=== PATIENT | female | born 1940 | race Caucasian/White ===

== ENCOUNTER → 2018-12-08 | Day surgery (SDC) | payer MEDICARE, OTHER ==
[2018-12-01 11:40] LABS: BASOPHILS # (AUTO) 0.1 (0.0-0.1); BASOPHILS % 0.7 % (0.0-1.0); EOSINOPHILS # (AUTO) 0.4 (0.0-0.4); EOSINOPHILS % 5.9 % (0.0-6.0); HEMATOCRIT 40.1 % (34.2-44.1); HEMOGLOBIN 12.9 g/dL (12.0-16.0); LYMPHOCYTES # (AUTO) 3.1 (1.0-3.2); LYMPHOCYTES % 42.9 % (18.0-39.1); MEAN CORPUSCULAR HEMOGLOBIN 29.3 pg (28-32); MEAN CORPUSCULAR HGB CONC 32.2 g/dL (31-35); MEAN CORPUSCULAR VOLUME 91.1 fL (81-99); MONOCYTES # (AUTO) 0.7 (0.2-0.8); MONOCYTES % 9.1 % (4.4-11.3); NEUTROPHILS % 41.1 % (38.7-80.0); PLATELET COUNT 193 x10e3/uL (140-360); RED CELL DISTRIBUTION WIDTH 13.1 % (11.7-14.4)
[~2018-12-08] MED LIST: FENTANYL CITRATE/PF 100MCG/2 ML INJ ONE; GLUCAGON FOR INJ 1 MG VIAL ONE; HYOSCYAMINE 0.125 MG TAB ONE; MIDAZOLAM HCL 2 MG/2 ML VIAL ONE; MULTIVITAMIN PO; PREMARIN0.625 MG PO; PROPOFOL IV EMULSION 10 MG/ML 50 ML VIAL ONE; VITAMIN C PO
--- OUTSIDE RECORDS SUMMARY | 2018-12-08 10:01 | XMS REPORT | Clinical Summary ---
Author Author [facility] Address Unknown Phone Unavailable Care Team Providers Care Full Roll Inspector Name Role Phone PCP Unavailable Allergies Not on File Medications Not on file Active Problems Not on file Encounters Care Team Description Date Type Specialty Chucho Limon MD 01/23/2018 Lab Lab after 12/07/2017 Social History Date Tobacco Use Types Packs/Day Years Used Never Assessed Sex Assigned at Date Recorded Not on file Industry Job Start Date Occupation Not on file Not on file Not on file Travel End Travel History Travel Start No recent travel history available. Last Filed Vital Signs Not on file Plan of Treatment Health Maintenance Due Date Last Done Comments SHINGLES VACCINES (#1) 1990 65+ PNEUMOCOCCAL VACCINE 2005 (1 of 2 - PCV13) INFLUENZA VACCINE 10/15/2018 Procedures Comments Procedure Name Priority Date/Time Associated Diagnosis SURGICAL PATHOLOGY Routine 01/26/2018 REQUEST 1:21 PM EXTENDED INSURANCE CLERK SURGICAL PATHOLOGY Routine 01/26/2018 REQUEST 1:21 PM EXTENDED INSURANCE CLERK after 12/07/2017 Results * Surgical pathology request (01/26/2018 1:21 PM EXTENDED INSURANCE CLERK) Only the most recent of 2 results within the time period is included. [facility] DEPARTMENT OF PATHOLOGY AND GENOMIC MEDICINE Surgical See link below for PDF Lab [facility] DEPARTMENT pathology Report OF PATHOLOGY report AND GENOMIC MEDICINE Result status This is Supplemental Report [facility] DEPARTMENT for [id number] OF PATHOLOGY AND GENOMIC MEDICINE Specimen Performing Organization Address City/State/Zipcode Phone Number [facility] DEPARTMENT OF [address] [place] [address] PATHOLOGY AND GENOMIC MEDICINE after 12/07/2017 Insurance Type Payer Benefit Subscriber ID Effective Phone Address Plan / Dates Group Medicare MEDICARE MEDICARE xxxxxxxxxxx 2005- GUY, PART A AND Present [place] Commercial COMMERCIAL MISC MISC xxxxxxxxxx 2012-P COMMERCIAL resent Advance Directives For more information, please contact: [phone] Patient Certified Pathology Assistant Explanation Type Date Recorded Advance Directives, Living Will and Medical Power of Corporate Fitness Program Coordinator
--- OUTSIDE RECORDS SUMMARY | 2018-12-08 10:01 | XMS REPORT | Continuity of Care Document ---
Author Author [facility] [employer] Organization [facility] [employer] Address Unknown Phone Unavailable Care Team Providers Care Concrete Finishing Machine Operator Name Role Phone [facility] Information [employer] Unavailable Unavailable Problems Problem Status Onset Date Classification Date Reported Comments Source Other specified disorders of muscle 07/02/2017 09/30/2017 [facility] PELVIC FLOOR WEAKNESS Active 07/01/2017 [facility] PHYSICAL THERAPY [id number] Active 05/19/2017 [facility] URINARY ISSUES Active 03/17/2017 [facility] Overactive bladder 09/30/2017 [facility] Mixed incontinence 09/30/2017 [facility] Frequency of micturition 09/30/2017 [facility] Post-void dribbling 09/30/2017 [facility] Other lack of coordination 09/30/2017 [facility] Muscle weakness (generalized) 09/30/2017 [facility] Medications No Data Provided for This Section Allergies, Adverse Reactions, Alerts No Known Medication Allergies Immunizations No Data Provided for This Section Results No Data Provided for This Section Pathology Reports No Data Provided for This Section Diagnostic Reports No Data Provided for This Section Consultation Notes No Data Provided for This Section Discharge Summaries No Data Provided for This Section History and Physicals No Data Provided for This Section Vital Signs No Data Provided for This Section Encounters Location Location Details Encounter Type Encounter Number Reason For Visit Attending Provider ADM Date DC Date Status Source [facility] Recurring [id number] Gazala Prabhakar 05/26/2017 06/25/[address] [facility] [place] [facility] [id number] Gazala Prabhakar 05/29/2017 06/28/[address] [facility] [place] [facility] [place] [facility] [id number] [place] Prabhakar 07/01/2017 07/31/[address] [facility] [place] [facility] [place] [facility] [id number] [place] Prabhakar 07/31/2017 08/30/[address] [facility] [place] Procedures No Data Provided for This Section Assessment and Plan No Data Provided for This Section Plan of Care No Data Provided for This Section Social History Social History Date Source No data available for this section 08/30/[address] [facility] [place] No data available for this section 06/25/2017 [facility] Family History No Data Provided for This Section Advance Directives No Data Provided for This Section Functional Status No Data Provided for This Section
--- OUTSIDE RECORDS SUMMARY | 2018-12-08 10:02 | XMS REPORT | Summary of Care ---
Author Author [facility] [employer] [facility] Address Unknown Phone Unavailable Encounter HQ Roshni([facility]) [id number] Date(s): 07/31/17 - 08/29/17 [facility] Discharge Disposition: Home or Self Care Attending Physician: Harmony Prabhakar MD Vital Signs No data available for this section Problem List No data available for this section Allergies, Adverse Reactions, Alerts No data available for this section Medications No data available for this section Results No data available for this section Immunizations No data available for this section Procedures No data available for this section Social History No data available for this section Assessment and Plan No data available for this section
--- OUTSIDE RECORDS SUMMARY | 2018-12-08 10:02 | XMS REPORT | Summary of Care ---
Author Author [facility] Organization [facility] Address Unknown Phone Unavailable Encounter HQ Susy_fabiano(FIN) [id number] Date(s): 05/26/17 - 06/24/17 [id number] [place] [address]- Discharge Disposition: Home or Self Care Attending Physician: Harmony Prabhakar MD Referring Physician: Harmony Prabhakar MD Vital Signs No [...]
--- OUTSIDE RECORDS SUMMARY | 2018-12-08 10:02 | XMS REPORT | Summary of Care ---
Author Author [facility] Organization [facility] Address Unknown Phone Unavailable Encounter ABIMAEL Barakat(ANGELA) [id number] Date(s): 05/26/17 - 06/24/17 [id number] [place] [address]- Encounter Diagnosis Other specified disorders of muscle (Final) - 07/01/17 Overactive bladder (Final) - Mixed incontinence (Final) - Frequency of micturition (Final) - Post-void dribbling (Final) - Other lack of coordination (Final) - Muscle weakness (generalized) (Final) - Discharge Disposition: Home or Self Care Attending [...]
--- OUTSIDE RECORDS SUMMARY | 2018-12-08 10:02 | XMS REPORT | Summary of Care ---
Author Author CHASTITY Corona, LAVINIA Organization Unknown Address Unknown Phone Unavailable Care Team Providers Care Optical Sales Associate Name Role Phone CHASTITY Corona, LAVINIA Unavailable Unavailable ERROL THOMAS DNP Unavailable Unavailable CHSATITY ROCHA [place], LAVINIA Unavailable Javad BISWAS MD VARED Unavailable Unavailable Unavailable Unavailable Functional Status Name Dates Details Functional status health issues are not documented Status: Name Dates Details Cognitive status health issues are not documented Status: Problems Name Dates Details Irritable bowel syndrome (IBS) (564.1, K58.9) Status: Active Vaginal discharge (623.5, N89.8) Status: Active Hormone replacement therapy (V07.4, Z79.890) Status: Active Gross hematuria (599.71, R31.0) Status: Active Urinary symptom or sign (788.99, R39.9) Status: Active Pelvic floor dysfunction (618.83, M62.89) Status: Active Overactive bladder (596.51, N32.81) Status: Active Encounter for routine gynecological examination with Papanicolaou smear of cervix (V72.31, Z01.419) Status: Active Encounter for gynecological examination (V72.31, Z01.419) Status: Active Yeast infection (112.9, B37.9) Status: Active Inconclusive mammogram due to dense breasts (793.82, R92.2) Status: Active Neuropathic pain (729.2, M79.2) Status: Active Benign essential hypertension (401.1, I10) Status: Active Hyperlipidemia (272.4, E78.5) Status: Active Breast mass, left (611.72, N63.20) Status: Active Rash (782.1, R21) Status: Active Medications Name Dates Details Vitamin B-12 1000 MCG Oral Tablet M.A. * Start : 06-Dec-2016 Active Premarin 0.45 MG Oral Tablet TAKE 1 TABLET DAILY. * Quantity: 90 Refills: 3 LAVINIA HAYWOOD M.D. * Start : 25-Dec-2016 Active Alclometasone Dipropionate 0.05 % External Cream APPLY SPARINGLY TO AFFECTED AREA(S) 2 TO 3 TIMES DAILY. * Refills: 0 M.A. * Start : 02-Sep-2018 Active 15 GM Tube Furosemide 20 MG Oral Tablet TAKE 1 TABLET DAILY * Quantity: 3 Refills: 0 M.A. * Start : 26-Oct-2018 Active Premarin 0.625 MG Oral Tablet TAKE 1 TABLET DAILY. * Quantity: 90 Refills: 3 M.A. * Start : 26-Oct-2018 Active Allergies and Adverse Reactions Name Dates Details Penicillins (Allergy) Status: Active Past Medical History Name Dates Details Irritable bowel syndrome (IBS) (564.1, K58.9) Status: Active History of hypercholesterolemia (V12.29, Z86.39) Status: Resolved History of rheumatic fever (V12.09, Z86.79) Status: Resolved Procedures Procedure Dates Details Breast Bilat 36579 Date: 07-Oct-2018 [place] Digital Mammo DX Uni w jaguar [id number] Date: 26-Oct-2018 History of Hysterectomy abdominal Completed History of Nasal septoplasty Completed History of Incision and drainage of pilonidal cyst Completed History of Hemorrhoidectomy Completed History of Cataract surgery Completed Immunization Name Dates Details Immunizations not documented Family History Name Dates Details Family history of lung cancer (V16.1, Z80.1) Status: Active Family history of cerebrovascular accident (CVA) (V17.1, Z82.3) Status: Active Name Dates Details Family history of malignant neoplasm of prostate (V16.42, Z80.42) Status: Active Social History Name Dates Details - Status: Name Dates Details Never smoker Vital Signs Date Test Result Details [id number]-[id number]:41 BP Systolic 178 mm[Hg] Status: Comments: Location: LUE; Position: Standing BP Diastolic 78 mm[Hg] Status: Comments: Location: LUE; Position: Standing Heart Rate 78 /min Status: Comments: Location: L Brachial Artery; 26-Czr-[id number]:37 BP Systolic 172 mm[Hg] Status: Comments: Location: LUE; Position: Sitting BP Diastolic 83 mm[Hg] Status: Comments: Location: LUE; Position: Sitting Physical Findings 3 Status: Comments: PHQ-9 Adult Depression Screening Heart Rate 78 /min Status: Comments: Location: L Brachial Artery; Height 62 in Status: Weight 160.5 lb Status: Body Mass Index Calculated 29.36 kg/m2 Status: Body Surface Area Calculated 1.74 m2 Status: Temperature 97.6 f Status: Comments: Method: Oral Physical Findings 0 Status: Comments: Alcohol Screen - How many times in the past yr have you had 5 (for M) or 4 (for F) or 4 (for all > 65yrs) or more drinks in a day? [id number]-Cni-[id number]:45 Physical Findings 3 Status: Comments: PHQ-9 Adult Depression Screening Results Date Description Value Details :35 [[facility]] HEMOGLOBIN A1c Hemoglobin A1c 5.3 % Range: <=5.6 :35 [[facility]] CMP W/EGFR Sodium Level 143 {mEq/l} Range: 135-145 Potassium Level 3.9 {mEq/l} Range: 3.5-5.1 Chloride Level 107 {mEq/l} Range: 95-109 Carbon Dioxide 29 {mEq/l} Range: 24-32 AGAP 10.9 {mEq/l} Range: 10.0-20.0 Glucose Lvl 94 mg/dl Range: 70-99 Comments: Adult reference range values reflect the clinical guidelinesof the [place] [employer]. Creatinine Lvl 0.70 mg/dl Range: 0.50-1.40 Blood Urea Nitrogen 14 mg/dl Range: 7-22 BUN/Creatinine Ratio 20 Range: 6-25 Total Protein 7.2 g/dl Range: 6.4-8.4 Albumin Lvl 3.7 g/dl Range: 3.5-5.0 Globulin 3.5 g/dl Range: 2.7-4.2 A/G Ratio 1.1 Range: 0.7-1.6 Calcium Level Total 9.1 mg/dl Range: 8.5-10.5 ALT 21 u/l Range: 0-65 AST 18 u/l Range: 0-37 Bili Total 0.5 mg/dl Range: 0.2-1.3 Alk Phos 56 u/l Range: 39-136 Comments: The pediatric reference ranges for this test represent a CLSI- basedtransference of the CALIPER database of pediatric reference intervals to the[facility] [place], OklahomaCooltech Applications analyzer (Clinical Biochemistry 46 (2013): 7760-5813). [facility] has not internally validated these referenceranges and therefore they should be used only in the context of a thoroughclinical assessment. eGFR 84 {ML/MIN/1.7} Comments: The eGFR is calculated using the CKD-EPI formula. In most young, healthyindividuals the eGFR will be >90 mL/min/1.73m2. The eGFR declines with age. AneGFR of 60-89 may be normal in some populations, particularly the elderly, forwhom the CKD-EPI formula has not been extensively validated. Use of the eGFR isnot recommended in the following populations:Individuals with unstable creatinine concentrations, including patients and those with serious co-morbid conditions.Patients with extremes in muscle mass or diet.The data above are obtained from the National Kidney Disease Education Program(NKDEP) which additionally recommends that when the eGFR is used in patientswith extremes of body mass index for purposes of drug dosing, the eGFR shouldbe multiplied by the estimated BMI. 62-Oat-844672:39 [facility] - DIAG MAMM LEFT JAGUAR CAD DIGITAL DIAG MAMM LEFT JAGUAR CAD DIGITAL - DIAG MAMM LEFT JAGUAR CAD DIGITALUNILATERAL LEFT DIGITAL DIAGNOSTIC MAMMOGRAM 3D/2D WITH CAD: 10/27/2018CLINICAL: Recall from screening: Left breast mass. Digital breast tomosynthesis was performed in a ddition to routine CC and MLO views. Current mammographic images were evaluated by either a Flickr M-Vu or a [facility] ImageChecker CAD (computer aided detection system). Comparison is made to exams dated 09/03/2018 mammogram, 07/30/2017 mammogram, and 06/11/2016 mammogram - [facility]. The tissue of the left breast is heterogeneously dense. This may lower the sensitivity of mammography. There are benign calcifications in the left breast. There is a round mass with a circumscribed margin in the left breast at 3 o'clock, middle depth. No other significant masses or calcifications are seen in the breast. INCOMPLETE ASSESSMENT: ADDITIONAL IMAGING EVALUATION RECOMMENDEDThe round mass in the left breast is indeterminate. An ultrasound is recommended. Resume annual screening mammography in one year. - BREAST ULTRASOUND LEFTULTRASOUND OF LEFT BREAST AND LEFT AXILLA: 10/27/2018Comparison is made to exams dated 09/03/2018 mammogram, 07/30/2017 mammogram, and 06/11/2016 mammogram - [facility]-. Color flow, real-time, and Doppler ultrasound of the left breast and axilla were performed. [place] scale images of the real-time examination were reviewed. No suspicious abnormalities were seen sonographically in the left breast or the left axilla. There is a 10 mm benign- appearing cyst at 3 o'clock, 4 cm from the nipple, which correlates with the mammographic abnormality.IMPRESSION: BENIGN There is no sonographic evidence of malignancy. Resume annual screening mammography in one year. Liam Banegas M.D. et/:10/27/2018 11:24:40 Entry: - 11/05/2018 14:23:42Imaging Technologist: Nahomy JOSHUA, [facility]-letter sent: BIRADS 1-2 Combo FU Letter Mammogram BI-RADS: 0 Indeterminate Ultrasound BI-RADS: 2 [email or web address] [id number] [place] - BREAST ULTRASOUND LEFT BREAST ULTRASOUND LEFT - DIAG MAMM LEFT JAGUAR CAD DIGITALUNILATERAL LEFT DIGITAL DIAGNOSTIC MAMMOGRAM 3D/2D WITH CAD: 10/27/2018CLINICAL: Recall from screening: Left breast mass. Digital breast tomosynthesis was performed in addition to routine CC and MLO views. Current mammographic images were evaluated by either a Flickr M-Vu or a [facility] ImageChecker CAD (computer aided detection system). Comparison is made to exams dated 09/03/2018 mammogram, 07/30/2017 mammogram, and 06/11/2016 mammogram - [facility]-. The tissue of the left breast is heterogeneously dense. This may lower the sensitivity of mammography. There are benign calcifications in the left breast. There is a round mass with a circumscribed margin in the left breast at 3 o'clock, middle depth. No other significant masses or calcifications are seen in the breast. INCOMPLETE ASSESSMENT: ADDITIONAL IMAGING EVALUATION RECOMMENDEDThe round mass in the left breast is indeterminate. An ultrasound is recommended. Resume annual screening mammography in one year. - BREAST ULTRASOUND LEFTULTRASOUND OF LEFT BREAST AND LEFT AXILLA: 10/27/2018Comparison is made to exams dated 09/03/2018 mammogram, 07/30/2017 mammogram, and 06/11/2016 mammogram - [facility]-. Color flow, real-time, and Doppler ultrasound of the left breast and axilla were performed. [place] scale images of the real-time examination were reviewed. No suspicious abnormalities were seen sonographically in the left breast or the left axilla. There is a 10 mm benign-appearing cyst at 3 o'clock, 4 cm from the nipple, which correlates with the mammographic abnormality.IMPRESSION: BENIGN There is no sonographic evidence of malignancy. Resume annual screening mammography in one year. Liam Banegas M.D. et/:10/27/2018 11:24:40 Entry: - 11/05/2018 14:23:42Imaging Technologist: Nahomy JOSHUA, [facility]-letter sent: BIRADS 1-2 Combo FU Letter Mammogram BI-RADS: 0 Indeterminate Ultrasound BI-RADS: 2 [email or web address] Plan of Care Name Dates Details Planned Observations Planned Goals not documented Instructions Name Dates Details Instructions not documented Encounters Appointment; ABBY HARRIS M.D. Encounter Diagnosis: Problem not documented On: 06-Dec-2016 10:00 Appointment; LAVINIA HAYWOOD M.D. Encounter Diagnosis: Problem not documented On: 25-Dec-2016 10:15 Appointment; ABBY HARRIS M.D. Encounter Diagnosis: Problem not documented On: 16-Jan-2017 14:15 Appointment; ABBY HARRIS M.D. Encounter Diagnosis: Problem not documented On: 11-Apr-2017 10:30 Appointment; AUGUST MOLINA Encounter Diagnosis: Problem not documented On: 02-May-2017 13:30 Appointment; ABBY HARRIS M.D. Encounter Diagnosis: Problem not documented On: 07-May-2017 13:00 Appointment; AUGUST MOLINA Encounter Diagnosis: Problem not documented On: 09-May-2017 13:30 Appointment; ABBY HARRIS M.D. Encounter Diagnosis: Problem not documented On: 25-Jul-2017 11:15 Appointment; LAVINIA HAYWOOD M.D. Encounter Diagnosis: Problem not documented On: 02-Sep-2018 10:00 Appointment; ERROL TOHMAS GNP- Encounter Diagnosis: Problem not documented On: 26-Oct-2018 13:00
--- OUTSIDE RECORDS SUMMARY | 2018-12-08 10:02 | XMS REPORT ---
[facility] Address Unknown Phone Unavailable Care Team Providers Care Licensed Esthetician Name Role Phone Unavailable Unavailable Problems This patient has no known problems. Allergies, Adverse Reactions, Alerts This patient has no known allergies or adverse reactions. Medications This patient has no known medications. Results Test Description Test Time Test Comments Text Results Atomic Results Result Comments DIAG MAMM LEFT JAGUAR CAD DIGITAL 2018-10-27 11:24:40 - DIAG MAMM LEFT JAGUAR CAD DIGITALUNILATERAL LEFT DIGITAL DIAGNOSTIC MAMMOGRAM 3D/2D WITH CAD: 10/27/2018CLINICAL: Recall from screening: Left breast mass. Digital breast tomosynthesis was performed in addition to routine CC and MLO views. Current mammographic images were evaluated by either a H-art (WPP) M-Vu or a CraigsBlueBook ImageChecker CAD (computer aided detection system). Comparison is made to exams dated 09/03/2018 mammogram, 07/30/2017 mammogram, and 06/11/2016 [facility]ogram - [facility]. The tissue of the left [...] An ultrasound is recommended. Resume annual screening mammog estrellita in one year. - BREAST ULTRASOUND LEFTULTRASOUND OF LEFT BREAST AND LEFT AXILLA: 10/27/2018Comparison is made to exams dated 09/03/2018 mammogram, 07/30/2017 mammogram, and 06/11/2016 mammogram - [facility]. Color flow, real-time, and Doppler ultrasound of [...] - 11/05/2018 14:23:42Imaging Technologist: Nahomy JOSHUA, [facility] sent: BIRADS 1-2 Combo FU Letter Mammogram BI-RADS: 0 Indeterminate Ultrasound BI-RADS: 2 Benign BREAST ULTRASOUND LEFT 2018-10-27 11:24:40 - DIAG MAMM LEFT JAGUAR CAD DIGITALUNILATERAL LEFT DIGITAL DIAGNOSTIC MAMMOGRAM 3D/2D WITH CAD: 10/27/2018CLINICAL: Recall from screening: Left breast mass. Digital breast tomosynthesis was performed in addition to routine CC and MLO views. Current mammographic images were evaluated by either a H-art (WPP) M-Vu or a DrinkSendoer CAD (computer aided detection system). Comparison is made to exams dated 09/03/2018 mammogram, 07/30/2017 mammogram, and [facility] The tissue of the left breast is [...] 07/30/2017 mammogram, and [facility]. Color flow, real-time, and Doppler ultrasound of [...] - 11/05/2018 14:23:42Imaging Technologist: Nahomy JOSHUA, [facility]: BIRADS 1-2 Combo FU Letter Mammogram BI-RADS: 0 Indeterminate Ultrasound BI-RADS: 2 Benign SCR MAMM BILATERAL JAGUAR CAD DIGITAL 2018-09-07 13:23:35 - SCR MAMM BILATERAL JAGUAR CAD DIGITALBILATERAL DIGITAL SCREENING MAMMOGRAM 3D/2D WITH CAD: 09/03/2018CLINICAL: Asymptomatic. Digital breast tomosynthesis was performed in addition to routine CC and MLO views. Current mammographic images were evaluated by either a BuzzillaP M-Vu or a Yappecker CAD (computer aided detection system). Comparison is made to exams dated 07/30/2017 mammogram, 06/11 mammogram, and [facility]. The tissue of both breasts is heterogeneously dense. This may lower the sensitivity of mammography. There is a 1 cm oval mass with a circumscribed margin in the left breast at 3 o'clock, middle depth, 4 cm from the nipple. No other significant masses, calcifications, or other findings are seen in either breast. IMPRESSION: INCOMPLETE ASSESSMENT: ADDITIONAL IMAGING EVALUATION RECOMMENDEDThe 1 cm oval mass in the left breast is indeterminate. Additional views with possible ultrasound are recommended. Yanet Solares D.O. al/:09/07/2018 13:23:35 Web Specialist: Nahomy JOSHUA, [facility]: Additional Imaging Mammogram BI-RADS: 0 Indeterminate SCR MAMM BILATERAL JAGUAR CAD DIGITAL 2018-09-07 13:23:35 - SCR MAMM BILATERAL JAGUAR CAD DIGITALBILATERAL DIGITAL SCREENING MAMMOGRAM 3D/2D WITH CAD: 09/03/2018CLINICAL: Asymptomatic. Digital breast tomosynthesis was performed in addition to routine CC and MLO views. Current mammographic images were evaluated by either a BuzzillaP M-Vu or a CraigsBlueBook ImageFoxteq Holdingscker CAD (computer aided detection system). Comparison is made to exams dated 07/30/2017 mammogram, 06/11 mammogram, and 06/02/2015 mammogram - [facility]. The tissue of both breasts is heterogeneously dense. This may lower the sensitivity of mammography. There is a 1 cm oval mass with a circumscribed margin in the left breast at 3 o'clock, middle depth, 4 cm from the nipple. No other significant masses, calcifications, or other findings are seen in either breast. IMPRESSION: INCOMPLETE ASSESSMENT: ADDITIONAL IMAGING EVALUATION RECOMMENDEDThe 1 cm oval mass in the left breast is indeterminate. Additional views with possible ultrasound are recommended. Yanet carranza/:09/07/2018 13:23:35 Web Specialist: Nahomy JOSHUA, [facility]letter sent: Additional Imaging Mammogram BI-RADS: 0 Indeterminate
--- OUTSIDE RECORDS SUMMARY | 2018-12-08 10:02 | XMS REPORT | Summary of Care ---
Author Author [facility] Address Unknown Phone Unavailable Encounter [facility]) [id number] Date(s): 07/01/17 - 07/30/17 [facility] Discharge Disposition: Home or Self Care Attending [...]
[2018-12-08 13:51] VITALS: BP 122/49
--- NOTE | 2018-12-08 20:26 | Operative Report ---
DATE OF PROCEDURE: 12/08/2018 SURGEON: Derick Blair MD PROCEDURE: Colonoscopy with polypectomy. INDICATIONS FOR COLONOSCOPY: Surveillance colonoscopy, personal history of colon polyps. MEDICATIONS: The patient was done under MAC, please see anesthesiologist's note. PROCEDURE IN DETAIL: With the patient in left lateral decubitus position, a flexible fiberoptic Olympus colonoscope was inserted into the rectum with ease and advanced all the way to the cecum. Mucosa overlying the cecum appeared to be within normal limits. One minute polyp was removed per the cold biopsy forceps. The rest of the ascending, transverse, descending, sigmoid, and rectum appeared to be within normal limits. The scope was then retroflexed into the distal rectum and the area around the dentate line appeared to be within normal limits. The scope was then straightened out, it was subsequently withdrawn, and the patient tolerated the procedure well. IMPRESSION: Ascending colon polyp removed per cold biopsy forceps. PLAN: Follow up histology. Initiate high-fiber, low-fat diet. Initiate high-fiber supplement. The patient might benefit from a followup colonoscopy in 5 years. Derick Blair MD [facility] /[id number] cc: Paddy Dalton MD
== END | disposition home or self-care (01) ==
LOC: OR 09:58
PROVIDERS: ATTEND Internal Medicine Gastroenterology
DX: R19.7 Diarrhea, unspecified (principal); D12.6 Benign neoplasm of colon, unspecified; Z86.010 Personal history of colon polyps; I73.9 Peripheral vascular disease, unspecified; K58.9 Irritable bowel syndrome, unspecified; R05 Cough; Z88.0 Allergy status to penicillin; K64.8 Other hemorrhoids; R03.0 Elevated blood-pressure reading, without diagnosis of hypertension; Z01.810 Encounter for preprocedural cardiovascular examination; Z01.812 Encounter for preprocedural laboratory examination
CPT/HCPCS: 36415; 45380; 85025; 88305; 93005; J1610; J2250; J2704; J3010; 45378; 45385

== ENCOUNTER → 2019-08-10 | Outpatient (CLI) | payer MEDICARE, OTHER ==
[~2019-08-10] MED LIST changes: -FENTANYL CITRATE/PF 100MCG/2 ML INJ ONE; -GLUCAGON FOR INJ 1 MG VIAL ONE; -HYOSCYAMINE 0.125 MG TAB ONE; -MIDAZOLAM HCL 2 MG/2 ML VIAL ONE; -PROPOFOL IV EMULSION 10 MG/ML 50 ML VIAL ONE
--- NOTE | 2019-08-10 17:07 | Diagnostic Imaging Report ---
X-ray chest PA and lateral History: Shortness of breath Comparison: 03/30/2014 Findings: Central airways unremarkable. Heart size borderline normal. Aorta unremarkable. Other mediastinal contours unremarkable. No pleural effusion. No pneumothorax. There are nodular opacities in both lungs which are new compared with the previous exam. For example there is one nodular opacity in the right midlung zone that measures approximately 9 mm, one in the right lower lung measures approximately 6.2 mm. There is another nodular opacity in the left lower lung which measures approximately 11.5 mm, another measures approximately 18.7 mm and a third one measures approximately 13 mm. Degenerative changes of the thoracic spine are seen. Upper abdomen is unremarkable. Impression: Multiple new nodular opacities in both lungs. A CT scan of the chest is recommended for further evaluation. Signed by: Richard Ward MD on 08/10/2019 5:04 PM
== END ==
LOC: RAD 15:23
PROVIDERS: ATTEND Internal Medicine
DX: R06.02 Shortness of breath (principal); Z11.59 Encounter for screening for other viral diseases
CPT/HCPCS: 71046

== ENCOUNTER → 2019-08-16 | Outpatient (CLI) | payer MEDICARE, OTHER ==
[~2019-08-16] MED LIST changes: +IOPAMIDOL 370 MG/ML 200 ML INFUS..BTL INJ ONE; +SODIUM CHLORIDE 0.9% 50ML 50 ML ONE
--- NOTE | 2019-08-16 14:59 | Diagnostic Imaging Report ---
CT of the chest, with contrast. History: Abnormal chest x-ray. Comparison: Chest radiograph from 08/10/2019. Technique: Multidetector CT scanning of the chest was performed from the level of the apices to the upper abdomen after intravenous administration of contrast. Coronal and sagittal multiplanar reformations were obtained. RADIATION DOSE: Total DLP: 365.77 mGy*cm Dose modulation, iterative reconstruction, and/or weight based adjustment of the mA/kV was utilized to reduce the radiation dose to as low as reasonably achievable. FINDINGS: The thyroid and remaining visualized structures within the base of neck demonstrate no significant abnormalities. The thoracic aorta is normal course and caliber with mild atherosclerotic calcifications. The heart is not enlarged. There is no abnormal pericardial fluid present. Multiple prominent, mildly enlarged mediastinal lymph nodes are noted. A left paratracheal lymph node measures 0.9 x 1.0 cm. The trachea and proximal airways are patent. Examination of the lungs demonstrates innumerable bilateral pulmonary nodules. The largest nodule measures 1.7 x 2.5 cm and is located within the left lower lobe (axial image 104). A 1.2 x 1.9 cm pulmonary nodule is identified within the right lower lobe (axial image 95). A 1.0 x 1.2 cm nodules identified within the left upper lobe (axial image 29). Multiple additional smaller nodules are identified within the lungs bilaterally. There is no evidence for consolidation, pneumothorax, or significant pleural effusion. The visualized upper abdominal contents demonstrate no significant abnormalities. There are degenerative changes of the visualized thoracolumbar spine. The osseous structures otherwise demonstrate no evidence for acute fracture or destructive process. The extrathoracic soft tissues are unremarkable. IMPRESSION: Innumerable bilateral pulmonary nodules identified measuring up to 2.5 cm as detailed above. Findings are worrisome for a malignant process. Consider further evaluation with PET/CT, direct histopathologic sampling, or short-term follow-up examination. Additionally, there are prominent to mildly enlarged mediastinal lymph nodes which may reflect metastatic disease. Signed by: Dr. Peter Gonzalez MD on 08/16/2019 2:56 PM
== END ==
LOC: CT 13:32
PROVIDERS: ATTEND Internal Medicine
DX: R93.89 Abnormal findings on diagnostic imaging of other specified body structures (principal); R06.02 Shortness of breath
CPT/HCPCS: 71260; Q9967

== ENCOUNTER → 2019-10-06 | Day surgery (SDC) | payer MEDICARE, OTHER ==
[2019-10-01 11:55] LABS: BASOPHILS % 0.4 % (0.0-1.0); EOSINOPHILS # (AUTO) 0.2 (0.0-0.4); EOSINOPHILS % 2.1 % (0.0-6.0); HEMATOCRIT 36.4 % (34.2-44.1); HEMOGLOBIN 11.5 g/dL (12.0-16.0); LYMPHOCYTES # (AUTO) 2.6 (1.0-3.2); LYMPHOCYTES % 36.3 % (18.0-39.1); MEAN CORPUSCULAR HEMOGLOBIN 29.2 pg (28-32); MEAN CORPUSCULAR HGB CONC 31.6 g/dL (31-35); MEAN CORPUSCULAR VOLUME 92.4 fL (81-99); MONOCYTES # (AUTO) 0.6 (0.2-0.8); MONOCYTES % 8.9 % (4.4-11.3); NEUTROPHILS # (AUTO) 3.7 (2.1-6.9); PLATELET COUNT 176 x10e3/uL (140-360); RED BLOOD COUNT 3.94 x10e6/uL (3.6-5.1); RED CELL DISTRIBUTION WIDTH 13.8 % (11.7-14.4)
[~2019-10-06] MED LIST changes: -IOPAMIDOL 370 MG/ML 200 ML INFUS..BTL INJ ONE; +LIDOCAINE HCL 2% LOCAL INJ 5 ML SDV VIAL INJ ONE; +PROPOFOL IV EMULSION 10 MG/ML 20 ML VIAL ONE; -SODIUM CHLORIDE 0.9% 50ML 50 ML ONE
--- NOTE | 2019-10-07 06:31 | Operative Report ---
DATE OF PROCEDURE: 10/06/2019 SURGEON: Derick Blair MD PROCEDURE: EGD with biopsies. INDICATIONS FOR EGD: Abnormal uptake in stomach on PET scan. MEDICATIONS: The patient was done under MAC, please see anesthesiologist's note. PROCEDURE IN DETAIL: With the patient in the left lateral decubitus position, a flexible fiberoptic Olympus gastroscope was introduced into the esophagus under direct visualization without any difficulty. The esophagus appeared to be within normal limits. The scope was then advanced with ease into the stomach traversing a small sliding hiatal hernia. Mucosa overlying the antrum and the body revealed some patchy erythema and eyua-iy-ghpymmik edema, and biopsies were obtained and sent to stain for H. pylori. Pylorus was of normal contour and shape, was intubated with ease and the scope was advanced all the way to the second portion of the duodenum. The scope was then withdrawn slowly, mucosa overlying the proximal second portion and duodenal bulb appeared to be within normal limits. The scope was then withdrawn back into the stomach and retroflexed, and mucosa overlying the fundus and the cardia appeared to be within normal limits. The scope was then straightened out, it was subsequently withdrawn, and the patient tolerated the procedure well. IMPRESSION: 1. Normal esophagus. 2. Small sliding hiatal hernia. 3. Gastritis, biopsied, biopsies sent to stain for Helicobacter pylori. PLAN: Follow up histology. Initiate Protonix 40 mg one p.o. q.a.m. before meals. Derick Blair MD [facility] /[id number] cc: Paddy Dalton MD
== END | disposition home or self-care (01) ==
LOC: OR 06:34
PROVIDERS: ATTEND Internal Medicine Gastroenterology
DX: R93.5 Abnormal findings on diagnostic imaging of other abdominal regions, including retroperitoneum (principal); K29.50 Unspecified chronic gastritis without bleeding; B96.81 Helicobacter pylori [H. pylori] as the cause of diseases classified elsewhere; K44.9 Diaphragmatic hernia without obstruction or gangrene; K59.00 Constipation, unspecified; Z88.0 Allergy status to penicillin
CPT/HCPCS: 36415; 43239; 85025; 88305; 88312; 88342; J2001; J2704

== ENCOUNTER 2019-10-27 04:10 | Observation (INO) | payer MEDICARE, OTHER ==
[~2019-10-27] VITALS: Ht 160 cm; Wt 72.6 kg
[~2019-10-27 04:10] MED LIST changes: -LIDOCAINE HCL 2% LOCAL INJ 5 ML SDV VIAL INJ ONE; -PROPOFOL IV EMULSION 10 MG/ML 20 ML VIAL ONE
[2019-10-27] MEDS ORDERED: HYDRALAZINE HCL 20 MG/ML VIAL IV STA (04:40)
[2019-10-27 04:50] LABS: BASOPHILS % 0.5 % (0.0-1.0); EOSINOPHILS # (AUTO) 0.2 (0.0-0.4); EOSINOPHILS % 2.4 % (0.0-6.0); HEMOGLOBIN 13.2 g/dL (12.0-16.0); LYMPHOCYTES % 38.8 % (18.0-39.1); MEAN CORPUSCULAR HEMOGLOBIN 29.1 pg (28-32); MEAN CORPUSCULAR VOLUME 88.1 fL (81-99); MONOCYTES # (AUTO) 0.6 (0.2-0.8); MONOCYTES % 7.6 % (4.4-11.3); NEUTROPHILS # (AUTO) 3.8 (2.1-6.9); NEUTROPHILS % 50.3 % (38.7-80.0); PLATELET COUNT 203 x10e3/uL (140-360); RED BLOOD COUNT 4.54 x10e6/uL (3.6-5.1); RED CELL DISTRIBUTION WIDTH 13.5 % (11.7-14.4)
[2019-10-27] MEDS ORDERED: HYDRALAZINE HCL 20 MG/ML VIAL ONE (04:52)
--- NOTE | 2019-10-27 04:58 | NUR ---
JAMMIE ROCHA AT BEDSIDE FOR INITIAL EVAL.
[2019-10-27 05:10] LABS: ALBUMIN 3.6 g/dL (3.5-5.0); ANION GAP 13.9 mmol/L (8-16); CALCIUM 9.2 mg/dL (8.4-10.2); CREATININE, SERUM 0.94 mg/dL (0.57-1.11); POTASSIUM 3.9 mmol/L (3.5-5.1)
--- NOTE | 2019-10-27 05:13 | Emergency Department Note ---
History of Present Illnes History of Present Illness Chief Complaint: Hypertension History of Present Illness This is a 78 year old female arrived to the ED with complaints of generalized weakness and malaise and unsteadiness on her feet. Patient states she hasn't felt like herself for the past few days. Patient states she was concerned this her blood pressure is very high today as well.. Historian: Patient Arrival Mode: Car Severity: mild Onset quality: gradual Duration (how long): week(s) Timing of current episode: constant Exacerbating factors: none Past Medical/Family History Physician Review I have reviewed the patient's past medical and family history. Any updates have been documented here. Past Medical History Recent Fever: No Clinical Suspicion of Infectio: No New/Unexplained Change in Ment: No Past Medical History: None Past Surgical History: Hysterectomy, Cataract Removal Social History Smoking Cessation: Never Smoker Alcohol Use: None Any Illegal Drug Use: No Physically hurt or threatened: No Other Any Pre-Existing Lines (PICC,: No Review of Systems Review of Systems Constitutional: Reports as per HPI, Reports malaise, Reports weakness EENTM: Reports no symptoms Cardiovascular: Reports no symptoms Respiratory: Reports no symptoms Gastrointestinal: Reports no symptoms Genitourinary: Reports no symptoms Musculoskeletal: Reports no symptoms Integumentary: Reports no symptoms Neurological: Reports as per HPI Psychological: Reports no symptoms Endocrine: Reports no symptoms Hematological/Lymphatic: Reports no symptoms Physical Exam Related Data Allergies: Uncoded Allergies: PENICILLIN (Allergy, Intermediate, RASH, 07/24/12) Triage Vital Signs Vital Signs Date Time Temp Pulse Resp B/P (MAP) Pulse Ox O2 Delivery O2 Flow Rate FiO2 10/27/19 04:10 98.7 108 18 206/88 97 Room Air Vital signs reviewed: Yes Physical Exam CONSTITUTIONAL Constitutional: Present well-developed, Present well-nourished HENT HENT: Present normocephalic, Present atraumatic, Present oropharynx clear/moist, Present nose normal HENT L/R: Present left ext ear normal, Present right ext ear normal EYES Eyes: Reports PERRL, Reports conjunctivae normal NECK Neck: Present ROM normal PULMONARY Pulmonary: Present effort normal, Present breath sounds normal CARDIOVASCULAR Cardiovascular: Present regular rhythm, Present heart sounds normal, Present capillary refill normal, Present normal rate GASTROINTESTINAL Abdominal: Present soft, Present nontender, Present bowel sounds normal GENITOURINARY Genitourinary: Present exam deferred SKIN Skin: Present warm, Present dry MUSCULOSKELETAL Musculoskeletal: Present ROM normal NEUROLOGICAL Neurological: Present alert, Present oriented x 3, Present no gross motor or sensory deficits PSYCHOLOGICAL Psychological: Present mood/affect normal, Present judgement normal Results Laboratory Result Diagram: 10/27/19 0443 Laboratory Laboratory Tests Test 10/27/19 04:43 White Blood Count 7.63 x10e3/uL (4.8-10.8) Red Blood Count 4.54 x10e6/uL (3.6-5.1) Hemoglobin 13.2 g/dL (12.0-16.0) Hematocrit 40.0 % (34.2-44.1) Mean Corpuscular Volume 88.1 fL (81-99) Mean Corpuscular Hemoglobin 29.1 pg (28-32) Mean Corpuscular Hemoglobin Concent 33.0 g/dL (31-35) Red Cell Distribution Width 13.5 % (11.7-14.4) Platelet Count 203 x10e3/uL (140-360) Neutrophils (%) (Auto) 50.3 % (38.7-80.0) Lymphocytes (%) (Auto) 38.8 % (18.0-39.1) Monocytes (%) (Auto) 7.6 % (4.4-11.3) Eosinophils (%) (Auto) 2.4 % (0.0-6.0) Basophils (%) (Auto) 0.5 % (0.0-1.0) Neutrophils # (Auto) 3.8 (2.1-6.9) Lymphocytes # (Auto) 3.0 (1.0-3.2) Monocytes # (Auto) 0.6 (0.2-0.8) Eosinophils # (Auto) 0.2 (0.0-0.4) Basophils # (Auto) 0.0 (0.0-0.1) Absolute Immature Granulocyte (auto 0.03 x10e3/uL (0-0.1) Lab results reviewed: Yes Imaging Imaging results reviewed: Yes Procedures 12 Lead ECG Interpretation ECG Interpretation : ECG: ECG 1 Prior ECG tracings: reviewed QRS axis: left Conduction: incomplete RBBB ST segments normal: Yes Assessment & Plan Medical Decision Making MDM 78-year-old female brought to the ED with nonspecific complaints of generalized malaise and weakness. Pt admitted for further work up and neuro monitoring Assessment & Plan Final Impression: (1) Ataxia Depart Disposition: ADMITTED Last Vital Signs Date Time Temp Pulse Resp B/P (MAP) Pulse Ox O2 Delivery O2 Flow Rate FiO2 10/27/19 04:46 190/76 10/27/19 04:39 103 20 97 Room Air 10/27/19 04:10 98.7 Home Meds Reported Medications Estrogens Conjugated (PREMARIN) 0.625 Mg Tab, 0.625 MG PO DAILY 07/24/12 Medications in the ED Hydralazine HCl 10 mg NOW STAT IV Last administered on 10/27/19at 04:46; Admin Dose 10 MG; Start 10/27/19 at 04:40; Stop 10/27/19 at 04:49; Status DC Hydralazine HCl 20 mg STK-MED ONCE .ROUTE ; Start 10/27/19 at 04:52; Stop 10/27/19 at 04:47; Status DC SAMIR BROWN DO Oct 27, 2019 05:13
--- OUTSIDE RECORDS SUMMARY | 2019-10-27 05:15 | XMS REPORT | Continuity of Care Document ---
Author Author [facility] [employer] MANI Anderson [facility] Twitter Dashboard Address Unknown Phone Unavailable Care Team Providers Care Heel Blacker Name Role Phone [facility] Information Exchange Unavailable Un available Problems Problem Status Onset Date Classification Date Reported Comments Source Other specified disorders of muscle 07/02/2017 09/30/2017 [facility] PELVIC FLOOR WEAKNESS Active 07/01/2017 [facility] PHYSICAL THERAPY [id number];[id number] Active 05/19/2017 [facility] URINARY ISSUES Active 03/17/2017 [facility] Overactive bladder 09/30/2017 [facility] Mixed incontinence 09/30/2017 [facility] Frequency of micturition 09/30/2017 [facility] Post-void dribbling 09/30/2017 [facility] Other lack of coordination 09/30/2017 [facility] Muscle weakness (generalized) 09/30/2017 [facility] Medications No Data Provided for This Section [...] Provider ADM Date DC Date Status Source [facility] Recurring [id number] [place] Prabhakar 05/26/2017 06/25/2017 [facility] [place] [facility] [id number] [place] Prabhakar 05/29/2017 06/28/2017 [facility] [place] [facility] [place] [facility] [id number] [place] Prabhakar 07/01/2017 07/31/2017 [facility] [place] [facility] [place] [facility] [id number] [place] Prabhakar 07/31/2017 08/30/2017 [facility] [place] Procedures No Data Provided for This Section Assessment and Plan No Data Provided for This Section Plan of Care No Data Provided for This Section Social History Social History Date Source No data available for this section 08/30/2017 [facility] Rosa Mendoza No data available for this section 06/25/2017 [facility] Family History No Data Provided for This Section Advance Directives No Data Provided for This Section Functional Status No Data Provided for This Section
[2019-10-27 05:16] LABS: CREATINE KINASE MB 1.7 ng/mL (0-5.0)
--- NOTE | 2019-10-27 05:46 | Diagnostic Imaging Report ---
EXAMINATION: CHEST SINGLE (PORTABLE) INDICATION: ^TACHYCARDIA COMPARISON: 08/10/2019, chest CT dated 08/16/2019 FINDINGS: AP view TUBES and LINES: None. LUNGS: Lungs are well inflated. Bilateral mid to lower lung field hazy airspace opacities. Numerous pulmonary nodules are better visualized on prior CT. PLEURA: No significant pleural effusion or pneumothorax. HEART AND MEDIASTINUM: The cardiomediastinal silhouette is unremarkable. BONES AND SOFT TISSUES: No acute osseous lesion. Soft tissues are unremarkable. UPPER ABDOMEN: No free air under the diaphragm. IMPRESSION: Bilateral mid to lower lung field hazy airspace opacities, could represent edema and/or pneumonia in the appropriate clinical context. Signed by: Dr. Ha Morejon MD on 10/27/2019 5:43 AM
--- NOTE | 2019-10-27 06:25 | Diagnostic Imaging Report ---
Examination: CT head without contrast Clinical Indication: Head pressure; headache. Technique: Transaxial noncontrast images from the skull base through the vertex were obtained. Sagittal and coronal reformatted images were done. Dose modulation, iterative reconstruction, and/or weight based adjustment of the mA/kV was utilized to reduce the radiation dose to as low as reasonably achievable. Comparison: None. Findings: Scalp: No abnormalities. Bones: Intact. No fractures. No blastic or lytic lesions. Brain sulci: Appropriate for patient's age. Ventricles: Normal in size and configuration. No hydrocephalus. Extra-axial space: No abnormalities. Parenchyma: No masses, hemorrhage, or acute or chronic cortical based vascular insults. Suprasellar region: No abnormalities. Craniocervical junction: The foramen magnum is patent. No Chiari one malformation. Impression: No acute intracranial abnormality. Signed by: Dr. Kiersten Ying M.D. on 10/27/2019 6:21 AM
--- OUTSIDE RECORDS SUMMARY | 2019-10-27 06:44 | XMS REPORT | Continuity of Care Document ---
Author Author [facility] [employer] MANI Anderson [facility] Address Unknown Phone Unavailable Care Team Providers Care Scroll Shear Operator Name Role Phone [facility] Information Exchange Unavailable Un available Problems Problem Status Onset Date Classification Date Reported Comments Source Other specified disorders of muscle 07/02/2017 09/30/2017 [facility] PELVIC FLOOR WEAKNESS Active 07/01/2017 [facility] PHYSICAL THERAPY [id number];[id number] Active 05/19/2017 [facility] URINARY ISSUES Active 03/17/2017 [facility] Overactive bladder 09/30/2017 [facility] Mixed incontinence 09/30/2017 [facility] Frequency of micturition 09/30/2017 [facility] Post-void dribbling 09/30/2017 [facility] Other lack of coordination 09/30/2017 [facility] Muscle weakness (generalized) 09/30/2017 [facility] Medications No Data Provided for This Section [...] Provider ADM Date DC Date Status Source [facility] Recurring [id number] [place] Prabhakar 05/26/2017 06/25/2017 [facility] [place] [facility] [id number] [place] Prabhakar 05/29/2017 06/28/2017 [facility] [place] [facility] [place] [facility] [id number] [place] Prabhakar 07/01/2017 07/31/2017 [facility] [place] [facility] [place] [facility] [id number] [place] Prabhakar 07/31/2017 08/30/2017 [facility] [place] Procedures No Data Provided for This Section Assessment and Plan No Data Provided for This Section Plan of Care No Data Provided for This Section Social History Social History Date Source No data available for this section 08/30/2017 [facility] [place] Mendoza No data available for this section 06/25/2017 [facility] Family History No Data Provided for This Section Advance Directives No Data Provided for This Section Functional Status No Data Provided for This Section
--- NOTE | 2019-10-27 07:00 | NUR ---
received report from off going nurse. patient in room in bed. awake and alert. no s/s of acute distress. pending room assignment for admission. bed down, call light in reach. will continue to monitor.
[2019-10-27] MEDS ORDERED: ACETAMINOPHEN 325 MG TAB PO ONE (11:00)
--- NOTE | 2019-10-27 12:03 | History and Physical ---
ADMIT DIAGNOSES: 1. Hypertensive urgency. 2. H pyloric gastritis. 3. 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 DISCHARGE DIAGNOSES: 1. Hypertensive urgency, resolved. 2. Hypertensive heart disease. 3. H pylori gastritis. 4. 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 5. Untoward drug side effects (hypertension). HOSPITAL COURSE/HISTORY OF PRESENT ILLNESS: This is a 78-year-old white woman, who presented to [facility] with occipital headache and extremely elevated blood pressure. The patient states that when she went to bed on the night of October 26, 2019, her systolic blood pressure was 100/90 mmHg. The patient states this morning at 4 o'clock her systolic blood pressure is 220 mmHg. The patient also complained of occipital headache. The patient denies any visual changes or neck stiffness. The patient denies any nausea or vomiting. The patient states she has diarrhea, but she feels secondary to the antibiotics that she is taking for her Helicobacter pylori gastritis namely tetracycline and metronidazole. The patient states that since she started taking the metronidazole and tetracycline, she has had diarrhea and headache. In the emergency room, the patient was found to have white blood cell count of 7600 with 50% segmented neutrophils. The patient's hemoglobin is 13.2 g. The patient's comprehensive metabolic profile is unremarkable. Her B type natriuretic peptide level was slightly elevated at 102. The patient had a coronavirus test drawn, but the results are pending. The patient underwent EGD on 10/07/2019, which revealed gastritis, biopsied. The pathology from the gastric biopsy revealed Helicobacter pylori organisms. In the emergency room the patient was given several doses of intravenous hydralazine, which did lower her blood pressure. The patient still has slight occipital headache, which improved. The patient denies any visual changes. The patient's blood pressure at this time is 132/60 with a heart rate in the 90s. REVIEW OF SYSTEMS: GENERAL: Weight has been stable, no fever or chills. HEENT: Headache since early this morning with elevated blood pressure. Denies any visual changes. Denies any facial drooping or slurring of speech. CARDIOVASCULAR: Denies any chest pain, short of breath or cough. GI: She states she had diarrhea since she started metronidazole and tetracycline few days ago for Helicobacter pylori infection. : Denies any UTI symptoms. NEUROMUSCULAR: Denies any limb weakness or numbness. The patient denies any ataxia or dizziness. ALLERGIES: 1. PENICILLIN. 2. METRONIDAZOLE. 3. STATINS. HOME MEDICATIONS: 1. Premarin 0.625 mg p.o. once daily. 2. Metronidazole 500 mg p.o. t.i.d. 3. Tetracycline 500 mg t.i.d. 4. Bismuth subsalicylate one q.i.d. 5. Protonix 40 mg daily. PAST MEDICAL HISTORY: 1. Bilateral lower extremity venous insufficiency. 2. Stress incontinence. 3. Allergic rhinitis. 4. Irritable bowel syndrome (diarrhea predominant). 5. Hyperlipidemia. 6. Statin intolerance. 7. Helicobacter pylori gastritis diagnosed on October 07, 2019 after undergoing an EGD. 8. 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 PAST SURGICAL HISTORY: 1. Multiple colonoscopies. 2. Septoplasty. 3. Pilonidal cyst removed as a teenager. 4. Total abdominal hysterectomy with bilateral salpingo-oophorectomy. 5. EEG on October 07, 2019, which revealed the Helicobacter pylori infection. FAMILY HISTORY: Paternal grandmother had diabetes mellitus. SOCIAL HISTORY: This woman is and lives with her . No history of tobacco or alcohol use. 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 PHYSICAL EXAMINATION: GENERAL: She is awake, she is alert, she is fully oriented. Height 5 feet 3 inches, weight 160 pounds, BMI 28, blood pressure did get as high as 196/94 in the emergency room, currently is 132/53, pulse in the emergency room was 104 and currently 72, respiratory rate is 14, oxygen 100% on room air, temperature is 98.7. INTEGUMENT: Skin is warm and dry. No pallor, jaundice, or diaphoresis. HEENT: Anicteric sclerae. Moist mucous membranes. No facial drooping or dysarthria appreciated. NECK: Supple. No evidence of jugular venous distention. CARDIOVASCULAR: Regular rate and rhythm. No murmurs, gallops or rubs. LUNGS: No rales, no rhonchi, no wheezes. ABDOMEN: Soft, normal bowel sounds, nontender. EXTREMITIES: No edema or deformity. NEUROLOGIC: Intact. DIAGNOSES: 1. Hypertensive urgency, resolved. 2. Helicobacter pylori gastritis. 3. Pulmonary opacity secondary to scarring. 4. Adverse drug reaction (elevated blood pressure). PLAN: 1. We will stop metronidazole, tetracycline, and bismuth subsalicylate. 2. Continue oral Pantoprazole. 3. We will discharge the patient home and ask her to check her blood pressure three times a day and keep a log. 4. The patient will follow up in her primary care physician's office namely myself, Dr. Paddy Dalton within 1 week. 5. The patient instructed to contact my office or emergency room if her headaches worsened or if her systolic blood pressure became higher than 200 mmHg. I spent an hour in the care of this patient. MD TIFFANY Lozano/NATIVIDAD /[id number] MTDD
== END 2019-10-27 12:22 | disposition home or self-care (01) ==
LOC: ER 04:49 → ERHOLD 06:42
PROVIDERS: ADMIT Internal Medicine; ATTEND Internal Medicine
DX: I16.0 Hypertensive urgency (principal); R53.1 Weakness; R27.0 Ataxia, unspecified; I11.9 Hypertensive heart disease without heart failure; K29.70 Gastritis, unspecified, without bleeding; B96.81 Helicobacter pylori [H. pylori] as the cause of diseases classified elsewhere; T36.4X5A Adverse effect of tetracyclines, initial encounter; T37.8X5A Adverse effect of other specified systemic anti-infectives and antiparasitics, initial encounter; Z88.0 Allergy status to penicillin; Z88.8 Allergy status to other drugs, medicaments and biological substances; Z11.59 Encounter for screening for other viral diseases
CPT/HCPCS: 36415; 70450; 71045; 80053; 82550; 82553; 83880; 84484; 85025; 93005; 99284; G0378; J0360; U0002